=== PATIENT | female | born 1950 | race Caucasian/White ===

== ENCOUNTER 2020-03-03 06:35 | Emergency (ER) | payer OTHER, MEDICARE, SELFPAY ==
[2020-03-03 06:42] VITALS: BP 131/93; PULSE 84; RESP 24; TEMP 36.8; O2SAT 99; BMI 36.5
--- NOTE | 2020-03-03 06:43 | ED.GENADULT ---
HPI - General Adult General Chief complaint: Ear Stated complaint: Hearing aid stuck in Lt ear deep Time Seen by Provider: 03/03/20 06:39 Source: patient Mode of arrival: Ambulatory Limitations: no limitations History of Present Illness HPI narrative: Patient states that she has a piece of her hearing aid stuck in her left ear and cannot get it out. Has not tried to remove it on her own prior to arrival because she states that it is too deep. Related Data Allergies Allergy/AdvReac Type Severity Reaction Status Date / Time amoxicillin Allergy Mild Verified 03/03/20 06:43 Review of Systems Constitutional Constitutional: Denies headache(s) ENT Ears, Nose, Mouth, and Throat: Denies headache(s) Comments: Foreign body left ear Neurologic Neurologic: Denies headache(s) Hematologic/Lymphatic Hematologic/Lymphatic: Denies easy bleeding and Denies easy bruising Patient History Medical History Hearing difficulty (Acute) Social History lives independently: Yes Smoking Status: Former smoker Exam Const General: comfortable HENMT Ears: other (Foreign body easily identified left year) Skin Lesions: no lesions Rashes: no rashes Neuro General: patient alert and patient awake Extrem General: capillary refill normal Procedures Foreign Body EAR Location: ear canal (L) Foreign Body Suspected: other (Piece of hearing aid) TM intact pre-procedure: unable to visualize Foreign Body Removed: yes Foreign Body Removal Technique: forceps Tympanic Membrane Intact Post Procedure: Yes Patient Tolerated Procedure: Well Complications: none Medical Decision Making MDM Narrative Medical decision making narrative: A rubber piece of the hearing aid easily removed from the left EAC. There is no rupture the tympanic membrane post procedure. Patient was given return precautions and follow-up instructions. She expressed understanding and agreement. Discharge Plan Departure Patient Disposition: Home Clinical Impression: Foreign body of ear, left Qualifiers: Encounter type: initial encounter Qualified Code(s): T16.2XXA - Foreign body in left ear, initial encounter Activity Restrictions/Additional Instructions: Your left ear is most likely going to be uncomfortable/sore for the next day or so. Recommend that you do not place anything in your left ear and till the symptoms have improved. Return to the emergency department for any new or worsening symptoms
--- NOTE | 2020-03-03 07:19 | PC.NURSE ---
Pt had part of hearing aid in her left ear. Removed by Dr. Buckley. Pt states pain is now improved.
== END 2020-03-03 07:20 | disposition home or self-care (01) ==
PROVIDERS: Emergency Provider Emergency Medicine
DX: T16.2XXA Foreign body in left ear, initial encounter (principal)
CPT/HCPCS: 69200; 99281; 99283

== ENCOUNTER → 2020-12-10 14:58 | Outpatient (CLI) | payer MEDICARE, OTHER, SELFPAY ==
--- NOTE | 2020-12-10 15:11 | DI.MG.S_ITS ---
BILATERAL DIGITAL SCREENING MAMMOGRAM 3D/2D WITH CAD: 12/10/2020 CLINICAL: Routine screening. Comparison is made to exams dated: 12/29/2016 mammogram, 02/11/2015 mammogram, and 06/04/2011 mammogram - [facility]. There are scattered fibroglandular elements in both breasts. Current study was also evaluated with a Computer Aided Detection (CAD) system. No significant masses, calcifications, or other findings are seen in either breast. There has been no significant interval change. IMPRESSION: NEGATIVE There is no mammographic evidence of malignancy. A 1 year screening mammogram is recommended. This exam was interpreted at Station ID: [id number]. NOTE: For mammograms, a report in lay terms will be sent to the patient. Approximately 15% of breast malignancies will not be visualized mammographically. In the management of a palpable breast mass, a negative mammogram must not discourage biopsy of a clinically suspicious lesion. Electronically Signed By: Matias alford/jono:12/10/2020 15:53:20 letter sent: Normal Exam ACR BI-RADS Category 1: Negative [id number]
== END ==
PROVIDERS: PCP Family Medicine; Referring Provider Family Medicine; Visit Provider Family Medicine
DX: Z12.31 Encounter for screening mammogram for malignant neoplasm of breast (principal); M85.852 Other specified disorders of bone density and structure, left thigh; Z78.0 Asymptomatic menopausal state; Z87.891 Personal history of nicotine dependence
CPT/HCPCS: 77063; 77067; 77080

== ENCOUNTER → 2021-01-02 15:31 | Outpatient (CLI) | payer MEDICARE, OTHER, SELFPAY ==
--- NOTE | 2021-01-02 15:36 | DI.RAD.S_ITS ---
PROCEDURE: XR KNEE RT 3V INDICATIONS: KNEE PAIN TECHNIQUE: 3 views of the knee were acquired. COMPARISON: None. FINDINGS: Bones: No acute fracture. There is mild narrowing of the lateral joint space. Scattered degenerative subchondral sclerosis and spurring. Soft tissues: Small joint effusion is present. IMPRESSION: Mild right knee osteoarthritis Small joint effusion If the patient's pain or other symptoms persist, consider further evaluation with MRI Dictated by: Theo Thompson M.D. on 01/02/2021 at 16:00 Approved by: Theo Thompson M.D. on 01/02/2021 at 16:01
--- NOTE | 2021-01-02 15:36 | DI.RAD.S_ITS ---
PROCEDURE: XR KNEE LT 3V INDICATIONS: KNEE PAIN TECHNIQUE: 3 views of the knee were acquired. COMPARISON: None. FINDINGS: Bones: Chronic deformity of the patella suggestive of remote fracture. There is presumed posttraumatic deformity of the proximal tibia with callus formation. Mild narrowing of the medial and lateral joint spaces. There is severe narrowing of the patellofemoral joint space. There is chronic appearing heterotopic ossification projecting adjacent to the proximal tibia/fibula.. Soft tissues: No joint effusion. No suspicious soft tissue calcifications. Chondrocalcinosis projecting in the lateral compartment. IMPRESSION: Chronic posttraumatic and degenerative changes as above. Chondrocalcinosis Dictated by: Theo Thompson M.D. on 01/02/2021 at 16:01 Approved by: Theo Thompson M.D. on 01/02/2021 at 16:03
== END ==
PROVIDERS: PCP Family Medicine; Referring Provider Family Medicine; Visit Provider Family Medicine
DX: M25.561 Pain in right knee (principal); M17.11 Unilateral primary osteoarthritis, right knee; M25.562 Pain in left knee; M11.262 Other chondrocalcinosis, left knee; G89.29 Other chronic pain
CPT/HCPCS: 73562

== ENCOUNTER → 2021-05-05 15:52 | Outpatient (CLI) | payer MEDICARE, OTHER, SELFPAY ==
--- NOTE | 2021-05-05 | DI.RAD.S_ITS ---
PROCEDURE: XR CERVICAL SPINE 4V OR 5V INDICATIONS: neck pain TECHNIQUE: 7 views of the cervical spine were acquired. COMPARISON: None. FINDINGS: Bones: No fractures or dislocations to the T1 level. No suspicious bony lesions. Loss of lordosis which could be related to muscle spasm, rigidity or simply positional. Prior ACDF C4-C5 and C5-C6 with hardware and bone grafts in expected positions. There is loss of the normal cervical lordosis. Moderate disc degeneration at the C6-C7 and C7-T1 levels. Mild multilevel mid and lower cervical spine facet joint arthropathy and uncovertebral hypertrophy There is limited range of motion between flexion and extension, with preserved normal bony alignment. Soft tissues: Prevertebral soft tissues are normal in thickness. IMPRESSION: 1. Limited range of motion and multilevel spondylosis. 2. Expected appearance and alignment of prior ACDF C4-C5 and C5-C6. Dictated by: Gordy Montano [facility] Interpreted: Kassidy Paredes MD on 05/05/2021 at 16:49 Transcribed by: INDIRA on 05/05/2021 at 16:51 Approved by: Kassidy Paredes MD, PhD on 05/05/2021 at 16:56
--- NOTE | 2021-05-05 | DI.RAD.S_ITS ---
PROCEDURE: XR WRIST RT MIN 3V INDICATIONS: Pain in Right Arm TECHNIQUE: 4 views of the wrist were acquired. COMPARISON: [facility], CR, XR FINGER RT MIN 2V, 05/05/2021, 16:03. FINDINGS: Bones: No fractures or dislocations. No suspicious bony lesions. Moderate 1st CMC and 1st MCP degenerative narrowing is present. Scaphoid view: No visualized fracture. Soft tissues: No suspicious soft tissue calcifications. IMPRESSION: Arthritic changes as above. No visualized acute fracture or dislocation. However, if clinical concern and/or pain persist, short interval imaging followup in 7-10 days is recommended, as occult injury cannot be definitively excluded. Dictated by: Vannessa August M.D. on 05/05/2021 at 16:28 Approved by: Vannessa August M.D. on 05/05/2021 at 16:29
--- NOTE | 2021-05-05 | DI.RAD.S_ITS ---
PROCEDURE: XR FINGER RT MIN 2V INDICATIONS: Pain in Right Arm TECHNIQUE: AP hand, 2 views of the 1st finger(s) acquired. COMPARISON: None. FINDINGS: Bones: No fractures or dislocations. No suspicious bony lesions. Moderate 1st CMC and 1st MCP degenerative narrowing. Scattered areas of moderate IP narrowing are noted within digits 1 through 5. Small periarticular osteophytes are present. Soft tissues: No suspicious soft tissue calcifications. IMPRESSION: Diffuse arthritic changes as above. Dictated by: Vannessa August M.D. on 05/05/2021 at 16:29 Approved by: Vannessa August M.D. on 05/05/2021 at 16:30
== END ==
PROVIDERS: PCP Family Medicine; Referring Provider Family Medicine; Visit Provider Family Medicine
DX: M67.833 Other specified disorders of tendon, right wrist (principal); M79.601 Pain in right arm; M54.2 Cervicalgia; M47.812 Spondylosis without myelopathy or radiculopathy, cervical region; Z98.1 Arthrodesis status
CPT/HCPCS: 72050; 73110; 73140

== ENCOUNTER → 2021-07-24 16:27 | Outpatient (CLI) | payer OTHER, MEDICARE, SELFPAY ==
--- NOTE | 2021-07-24 | DI.MRI.S_ITS ---
PROCEDURE: MR LUMBAR SPINE WO CON INDICATIONS: Other intervertebral disc degeneration, lumbar reg TECHNIQUE: Noncontrast sagittal T1 spin echo and T2 fast echo, sagittal STIR, axial T1 and T2 fast spin echo through the lumbar spine. In cases with scoliosis, additional coronal T2 fast spin echo may be performed. COMPARISON: None. FINDINGS: Image quality: Excellent. Alignment and Curvature: There is mild L4-L5 anterolisthesis. Bones: Postsurgical changes compatible with L4-L5 PLIF. Modic type 1 reactive endplate changes noted adjacent to the L4-L5 and L5-S1 discs. Small benign intraosseous hemangioma noted in the T12 vertebral body. No acute vertebral body compression fractures. Spinal Cord: Conus medullaris terminates at the L2 level. Visualized cord demonstrates normal signal and size. Paraspinous Soft Tissues: No paravertebral masses. T12-L1: Loss of disc signal. Mild, diffuse disc bulge. Mild narrowing of the central canal. No neural foraminal narrowing. No neural compression. L1-L2: Normal appearance. L2-L3: Loss of disc signal. Mild, diffuse disc bulge. Gnxw-qx-pddvioar bilateral facet hypertrophy. Mild narrowing of the central canal. No neural foraminal narrowing. No neural compression. L3-L4: Loss of disc signal. Mild, diffuse disc bulge. Moderate bilateral facet hypertrophy. Moderate ligamentum flavum hypertrophy. Moderate narrowing of the central canal. Mild bilateral neural foraminal narrowing. No neural compression. L4-L5: Status post fusion. Severe bilateral facet hypertrophy. Moderate to severe narrowing of the central canal with crowding of the nerve roots of the cauda equina. Moderate to severe right and ajpj-ye-hxxicdsa left neural foraminal narrowing. No definite neural compression. L5-S1: Loss of disc signal. Severe bilateral facet hypertrophy. No central stenosis. Mild right and moderate left neural foraminal narrowing. IMPRESSION: 1. Status post L4-L5 PLIF. 2. Grade 1 L4-L5 degenerative spondylolisthesis. 3. Multilevel degenerative disc disease. 4. Multilevel facet arthropathy. 5. Moderate to severe L4-L5 central canal narrowing. 6. No severe neural foraminal narrowing. Dictated by: Kassidy Paredes MD, PhD on 07/25/2021 at 8:24 Approved by: Kassidy Paredes MD, PhD on 07/25/2021 at 8:33
== END ==
PROVIDERS: PCP Family Medicine; Referring Provider Anesthesiology Pain Medicine; Visit Provider Anesthesiology Pain Medicine
DX: M51.36 Other intervertebral disc degeneration, lumbar region (principal); M47.816 Spondylosis without myelopathy or radiculopathy, lumbar region; M47.817 Spondylosis without myelopathy or radiculopathy, lumbosacral region; M48.061 Spinal stenosis, lumbar region without neurogenic claudication; M48.07 Spinal stenosis, lumbosacral region; M43.16 Spondylolisthesis, lumbar region; M47.812 Spondylosis without myelopathy or radiculopathy, cervical region; M50.30 Other cervical disc degeneration, unspecified cervical region; Z98.1 Arthrodesis status
CPT/HCPCS: 72148

== ENCOUNTER → 2022-02-23 16:59 | Outpatient (CLI) | payer OTHER, MEDICARE, SELFPAY ==
--- NOTE | 2022-02-23 17:06 | DI.RAD.S_ITS ---
PROCEDURE: XR KNEE LT 3V INDICATIONS: CHRONIC KNEE PAIN TECHNIQUE: 3 views of the knee were acquired. COMPARISON: [facility], CR, XR KNEE LT 3V, 01/02/2021, 15:36. [facility], CR, XR KNEE RT 3V, 01/02/2021, 15:36. FINDINGS: Bones: Proximal tibial deformity is present suggestive of old fracture with callus formation. There is moderate to severe tricompartmental narrowing most notable in the lateral and patellofemoral compartments and progressive compared to prior exam. Areas of periarticular osteophytes are present. No erosions. Faint areas of suspected chondrocalcinosis are present. Soft tissues: No joint effusion. No suspicious soft tissue calcifications. IMPRESSION: Tricompartmental arthritic change progressive compared to prior exam. Dictated by: Vannessa August M.D. on 02/24/2022 at 11:43 Approved by: Vannessa August M.D. on 02/24/2022 at 11:45
--- NOTE | 2022-02-23 17:06 | DI.RAD.S_ITS ---
PROCEDURE: XR KNEE RT 3V INDICATIONS: CHRON KNEE PAIN TECHNIQUE: 3 views of the knee were acquired. COMPARISON: [facility], , XR KNEE RT 3V, 01/02/2021, 15:36. FINDINGS: Bones: No fractures or dislocations. No suspicious bony lesions. There is a stable appearance of mild lateral degenerative joint space narrowing. Minimal medial patellofemoral compartment narrowing are present. Minimal periarticular osteophytes are present without erosions. Soft tissues: Mild joint effusion. No suspicious soft tissue calcifications. IMPRESSION: Overall minimal to mild tricompartmental arthritic change stable compared to prior exam. Dictated by: Vannessa August M.D. on 02/24/2022 at 11:45 Approved by: Vannessa August M.D. on 02/24/2022 at 11:46
== END ==
PROVIDERS: PCP Family Medicine; Referring Provider Family Medicine; Visit Provider Family Medicine
DX: M25.561 Pain in right knee (principal); M25.562 Pain in left knee
CPT/HCPCS: 73562

== ENCOUNTER → 2023-01-13 12:22 | Outpatient (CLI) | payer OTHER, MEDICARE, SELFPAY ==
--- NOTE | 2023-01-13 | DI.RAD.S_ITS ---
PROCEDURE: XR LUMBAR SPINE 2-3V INDICATIONS: BACK PAIN TECHNIQUE: 3 views of the lumbar spine were acquired. COMPARISON: None. FINDINGS: Bones: 5 [id number] vertebrae are present. Patient is status post posterior fusion at L4-5 level with intervertebral spacer placement. There is 6 mm anterolisthesis of L4 on L5. Age indeterminate anterior wedge compression deformity at L1 level is seen with up to 20 percent loss of L1 vertebral body height anteriorly. This is a new finding since 07/25/2021 study. Degenerative endplate changes are noted throughout lumbar spine. No suspicious bony lesions. Soft tissues: Overlying bowel gas pattern is normal. No suspicious soft tissue calcifications. IMPRESSION: 1. Age indeterminate anterior wedge compression deformity at L1 level with up to 20 percent loss of L1 vertebral body height new since 2020 study. No other compression fracture or significant spondylolisthesis. 2. Postfusion changes at L4-5 level. No evidence of hardware loosening or failure. 6 millimeter anterolisthesis of L4 on L5. Dictated by: Kelvin Mccarty M.D. on 01/13/2023 at 15:06 Approved by: Kelvin Mccarty M.D. on 01/13/2023 at 15:10
== END ==
PROVIDERS: PCP Family Medicine; Referring Provider Family Medicine; Visit Provider Family Medicine
DX: M43.16 Spondylolisthesis, lumbar region (principal); M48.56XA Collapsed vertebra, not elsewhere classified, lumbar region, initial encounter for fracture; M54.50 Low back pain, unspecified; Z98.1 Arthrodesis status
CPT/HCPCS: 72100

== ENCOUNTER 2024-01-27 09:31 | Emergency (ER) | payer MEDICARE, OTHER, SELFPAY ==
--- NOTE | 2024-01-27 09:43 | DI.RAD.S_ITS ---
PROCEDURE: XR WRIST RT MIN 3V INDICATIONS: wrist pain TECHNIQUE: 4 views of the wrist were acquired. COMPARISON: [facility], , XR WRIST RT MIN 3V, 05/05/2021, 16:03. FINDINGS: Bones: No fractures or dislocations. No suspicious bony lesions. Severe 1st CMC joint osteoarthritis. Soft tissues: Heterotopic calcifications in the dorsal soft tissues of the wrist. IMPRESSION: No acute bony abnormality. Dictated by: Kassidy Paredes MD, PhD on 01/27/2024 at 10:40 Approved by: Kassidy Paredes MD, PhD on 01/27/2024 at 10:41
[2024-01-27 09:44] VITALS: BP 138/79; PULSE 65; RESP 15; TEMP 36.7; O2SAT 98; BMI 31.3
--- NOTE | 2024-01-27 11:20 | ED.UPPEXIN ---
HPI - Extremity Injury (Upper) General Chief Complaint: Extremity Injury, Upper Stated Complaint: Right wrist injury Time Seen by Provider: 01/27/24 11:17 Source: patient Mode of arrival: Ambulatory History of Present Illness HPI narrative: 73-year-old female with noncontributory medical history presents with a chief complaint many days if not a few weeks of right wrist pain. She has known arthritis and states that it has been flaring up ever since she had a minor fall on an outstretched wrist. It seemed to get better and then she traveled to [place] and then [place] and was frequently rolling luggage any new repetitive motion for her and now she has throbbing pain in the dorsum of her wrist. It is such that it kept her awake last night. She denies any numbness, tingling or weakness. No elbow or shoulder pain. No bruising, redness or warmth. Related Data Allergies Allergy/AdvReac Type Severity Reaction Status Date / Time amoxicillin Allergy Mild Verified 01/27/24 09:44 meperidine [From Demerol] Allergy Verified 01/27/24 09:44 Review of Systems Review of Systems Narrative: GENERAL: Denies chills, fatigue, malaise, fever, sweats. HEENT: Denies sinus pain, ear pain, sore throat, difficulty swallowing, dizziness. RESPIRATORY: Denies dyspnea, cough, wheezing, hemoptysis, sputum. CARDIOVASCULAR: Denies chest pain, palpitations, orthopnea, edema, GASTROINTESTINAL: Denies nausea, vomiting, abdominal pain, diarrhea, constipation, melena. : Denies dysuria, frequency, incontinence, hematuria, urinary retention. MUSCULOSKELETAL: See HPI SKIN: Denies rash, skin lesions, or other NEUROLOGIC: Denies weakness, headache, numbness, change in speech, confusion, seizures, incoordination. PSYCHIATRIC: No concerning psychosocial issues. 12 point review of systems is negative except for those stated above Patient History Medical History Hearing difficulty Social History lives independently: Yes Smoking Status: Former smoker Smoking Status: Former smoker alcohol intake frequency: other Substance Use Type: does not use Exam Narrative Exam Narrative: GENERAL: [73] year old patient appears stated age. Well-developed patient, in mild distress. HEAD: Atraumatic. Normocephalic. EYES: Pupils equal round and reactive. Extraocular motions intact. No scleral icterus. No injection or drainage. ENT: Nose without bleeding, purulent drainage. Throat without erythema, tonsillar hypertrophy or exudate. Airway patent. NECK: Trachea midline. Non tender CARDIOVASCULAR: Regular rate and rhythm without murmurs, gallops, or rubs. RESPIRATORY: Clear to auscultation. Breath sounds equal bilaterally. No wheezes, rales, or rhonchi. GASTROINTESTINAL: Abdomen soft, non-tender, nondistended. EXTREMITIES: Full but painful range of motion of the right wrist without obvious deformity or external manifestation of injury, no redness, swelling or discoloration, no fluctuance or induration. Tender on the dorsum of the wrist, closed, isolated and neurovascularly intact. Compartments are soft, no pain in elbow or shoulder BACK: Nontender without deformity or crepitance. No flank tenderness. NEURO: AOx3. SKIN: No rash or erythema of visible areas Initial Vital Signs Initial Vital Signs: Vital Signs Temperature 98.0 F 01/27/24 09:44 Pulse Rate 65 01/27/24 09:44 Respiratory Rate 15 01/27/24 09:44 Blood Pressure 138/79 01/27/24 09:44 Pulse Oximetry 98 01/27/24 09:44 Oxygen Delivery Method Room Air 01/27/24 09:44 Procedures Orthopedic Splinting/Casting Injury #1: Side: right Upper Extremity Injury Location: wrist Upper Extremity Immobilizer: wrist splint Post splinting neuro exam: intact Post splinting vascular exam: intact Course Orders Ordered: ED Orders 01/27/24 09:43 XR wrist RT min 3V Stat Vital Signs Vital signs: Vital Signs - 8 hr 01/27/24 09:44 Temperature 98.0 F Pulse Rate 65 Respiratory Rate 15 Blood Pressure 138/79 Pulse Oximetry 98 Oxygen Delivery Method Room Air MDM - Extremity Injury (Upper) Imaging Data Extremity x-ray #1: My Impression: No acute bony abnormality MDM Narrative Medical decision making narrative: [73] year old patient presents with right wrist pain without obvious traumatic injury Multiple etiologies for patient's symptoms considered including, but not limited to: [Sprain versus arthritis versus fracture versus dislocation versus other] Prior Charts reviewed in our EMR Primary Historian: patient Labs r considered but not thought to be useful given lack of redness, swelling, red streaks or other abnormality Imaging reviewed: No acute process Patient's symptoms improved over duration of stay with above-stated therapies. Findings and discharge diagnosis discussed with patient/family followed by verbalization of understanding Return precautions discussed with patient/family whom verbalize understanding of diagnosis and plan Discharge Plan Departure Patient Disposition: Home Clinical Impression: Sprain and strain of wrist Instructions: DI for Wrist Sprain Activity Restrictions/Additional Instructions: *You have been diagnosed with [right wrist pain. As we discussed your history and physical exam are reassuring in the x-ray shows no evidence of fracture or dislocation.] *What to do: *Please continue to take your regular medications as directed. [ ] New medication prescriptions sent to your pharmacy: [ ] [ ] New medication written as a paper prescription [x] Tylenol and occasional Motrin for pain *Please follow up with [ Raulito] of [facility] in 2-3 days, call for an appointment. Let them know you were seen in the Emergency Department and that we ask that you be seen in follow up. We will electronically transmit a record of today's note if your PCP is in our system *Return to Emergency Department if you should have any new, worsening or concerning symptoms, such as [worsening pain, significant swelling, cold extremities, numbness, tingling, weakness or other bothersome symptoms Referrals: Maxwell Cordon DO [Primary Care Provider] - Aramis Cabezas MD [Physician] - Stand Alone Forms: Patient Portal/API
[2024-01-27 11:40] VITALS: BP 118/67; PULSE 65; RESP 16; TEMP 36.8; O2SAT 96
== END 2024-01-27 11:40 | disposition home or self-care (01) ==
PROVIDERS: Emergency Provider Emergency Medicine; PCP Family Medicine
DX: S63.501A Unspecified sprain of right wrist, initial encounter (principal); S66.911A Strain of unspecified muscle, fascia and tendon at wrist and hand level, right hand, initial encounter; X58.XXXA Exposure to other specified factors, initial encounter
CPT/HCPCS: 73110; 99282; 99283